=== PATIENT | male | born 1955 | race Caucasian/White ===

== ENCOUNTER → 2019-07-06 | Outpatient (CLI) | payer MEDICARE, BC ==
--- NOTE | 2019-07-06 17:59 | CONS ---
CONSULTATION DATE OF SERVICE: 07/06/2019 This is a 63-year-old gentleman who has been evaluated in Sleep Center for obstructive sleep apnea-hypopnea syndrome. HISTORY OF PRESENT ILLNESS/SLEEP-WAKE EVALUATION: Patient was diagnosed with obstructive sleep apnea about 15 years ago. Since that time, he has been on treatment with CPAP. For the last years his weight increased from around 280 pounds up to 380 pounds. He is using the machine but not very regularly and may have episodes of snoring and stopping breathing while using the machine. He wakes up from sleep up to 4 times with up to 3 episodes of nocturia. No history of hypnagogic hallucinations, sleep paralysis or cataplexy. During the day, the patient may take one nap. Cornelius Sleepiness Scale is 7. PAST MEDICAL HISTORY: 1. Hypertension. 2. Hyperlipidemia. 3. Knee problems. PAST SURGICAL HISTORY: 1. Bilateral total knee replacement. 2. Bilateral surgical treatment of rotator cuff problems. MEDICATIONS: 1. Lisinopril. 2. Simvastatin. 3. Mucinex. 4. Vitamin B12. 5. Vitamin C. 6. Multivitamins. 7. . SOCIAL HISTORY: Positive for smoking about 1 to 2 packs per week for about 20 years. Quit 8 years ago. Alcohol consumption occasional. FAMILY HISTORY: Hypertension, stroke, snoring. REVIEW OF SYSTEMS: Awakenings from sleep, sometimes tiredness and sleepiness during the day. PHYSICAL EXAMINATION: GENERAL: A pleasant gentleman without distress. VITAL SIGNS: BP 152/71, HR 78, RR 18, height 6 feet 0 inches, weight 380 pounds. Body mass index 51.5, temperature 98.0, oxygen saturation at room air 93%. HEENT: PERRLA, EOMI. Evaluation of oropharynx showed tongue protrudes midline. Extremely low position of soft palate. Mallampati IV. Slight restriction of nasal breathing. NECK: Supple. No JVD. Thyroid is not palpable. Wide neck; 23 inches in circumference. LUNGS: Clear to percussion and to auscultation. Good air exchange. No wheezing or rhonchi. HEART: S1, S2 regular. No murmurs, gallops or rubs. ABDOMEN: Obese. EXTREMITIES: Minimal up to 1+ ankle edema. DENTAL ASSISTING INSTRUCTOR: Awake, alert, and oriented X3. Cranial nerves 2 to 7 intact. There is no fasciculation or atrophy. noted. No focal deficits observed. IMPRESSION: 1. History of obstructive sleep apnea for 15 years. Last sleep study 15 years ago. Patient's weight increased by 100 pounds. Extremely low soft palate, awakenings from sleep, wide neck; obstructive sleep apnea-hypopnea syndrome. 2. Obesity; body mass index 51.5. 3. Hypertension. 4. Hyperlipidemia. 5. Status post bilateral total knee replacement. 6. Status post bilateral rotator cuff surgery. PLAN: 1. Polysomnography for evaluation of patient's breathing during sleep. 2. CPAP/BiPAP titration if sleep study confirms obstructive sleep apnea-hypopnea syndrome. 3. Preferable position during sleep on the side. 4. No driving if patient feels any sleepiness. 5. I will see patient for follow up visit to explain results of testing and following plan. Thank you very much for referring this patient for consultation. Sincerely, Yifan Lundberg MD, PhD, FAASM Diplomat of [place] [employer] [place] [employer] Recruiting Consultant of [facility] [employer] MMODL / IJN: [id number] /
== END | disposition home or self-care (01) ==
LOC: SLEEP 11:12
PROVIDERS: ATTEND Internal Medicine
DX: G47.33 Obstructive sleep apnea (adult) (pediatric) (principal); E66.9 Obesity, unspecified; I10 Essential (primary) hypertension; E78.5 Hyperlipidemia, unspecified; R35.1 Nocturia; Z96.653 Presence of artificial knee joint, bilateral; Z68.43 Body mass index [BMI] 50.0-59.9, adult; Z98.890 Other specified postprocedural states; Z99.89 Dependence on other enabling machines and devices; Z79.899 Other long term (current) drug therapy
CPT/HCPCS: 99211

== ENCOUNTER → 2021-01-08 | Outpatient (CLI) | payer MEDICARE ==
--- NOTE | 2021-01-08 12:36 | SFUN ---
SLEEP CENTER FOLLOW UP NOTE DATE OF SERVICE: 01/08/2021 A 65-year-old gentleman had been followed in Sleep Center for treatment of obstructive sleep apnea-hypopnea syndrome. The patient did not use his CPAP equipment for more than 6 months because CPAP unit does not work. The patient had polysomnogram in 07/25/2019, but he slept during the sleep study only for 1 hour and 27 minutes, which is not sufficient for confirmation of diagnosis, although during this time patient's respiration showed apnea-hypopnea index 85.7. I ordered to proceed with a home test at that time in 2019, but because of situation with COVID patient did not have any testing. He continued to have problems with sleep. He continued to snore and wake up from sleep. Kyle Sleepiness Scale today is 6. MEDICATIONS: Simvastatin 20 mg once a day, lisinopril hydrochlorothiazide 10-12.5 mg tab daily. PHYSICAL EXAMINATION: GENERAL: Patient in no distress. VITAL SIGNS: BP 137/77, HR 79, RR 15, height 6 feet 0 inches, weight 370.4, BMI 50.1, temperature 98.4, oxygen saturation at room air 97%. HEENT: PERRLA, EOMI. Oropharynx extremely low position of soft palate. Mallampati 4. NECK: Supple, no JVD. Thyroid is not palpable. LUNGS: Clear to percussion and to auscultation. Good air exchange. No wheezing or rhonchi. HEART: S1, S2 regular. No murmurs, gallops, or rubs. ABDOMEN: Obese. EXTREMITIES: No clubbing or cyanosis. OLIVING MACHINE OPERATOR: Awake, alert, and oriented X3. Cranial nerves 2 to 7 intact. There is no fasciculation or atrophy. noted. No focal deficits observed. IMPRESSION: 1. History of obstructive sleep apnea-hypopnea syndrome for about 16 years. Last sleep study 1-1/2 years ago. At that time, the patient slept only for 1 hour and 27 minutes. CPAP unit is not working, broken. Extremely low position of soft palate. Multiple awakenings from sleep. Wide neck 22-1/2 inches in circumference. Obstructive sleep apnea-hypopnea syndrome. 2. Morbid obesity, body mass index 50.1. 3. Hypertension. 4. Hyperlipidemia. 5. Status post bilateral knee replacement. 6. Status post bilateral rotator cuff treatment. PLAN: 1. Home sleep apnea test to confirm obstructive sleep apnea-hypopnea syndrome. 2. Preferably CPAP titration for correction of respiratory abnormalities because of morbid obesity with BMI 50.1. 3. Losing weight. 4. Sleep hygiene with time in bed for 7-1/2 to 8 hours. 5. No driving if feeling sleepiness. Thank you very much for allowing me to participate in management of your patient. Sincerely, Yifan Lundberg MD, PhD, FAASM Diplomat of [place] [employer] [place] [employer] Video Specialist of [facility] [place] MMODL / IJN: [id number] /

== ENCOUNTER → 2021-05-14 | Outpatient (CLI) | payer MEDICARE | END | disposition home or self-care (01) ==

== ENCOUNTER → 2022-05-13 | Outpatient (CLI) | payer MEDICARE ==
--- NOTE | 2022-05-13 13:40 | P.PN ---
Subjective DATE: 05/13/2022 FOLLOW UP VISIT. Patient with obstructive sleep apnea hypopnea syndrome return to sleep center for follow-up visit. Patient is using PAP equipment every night for the whole night, getting PAP supplies in time. The patient does not have significant problems with the mask, PAP unit and humidification. Basye sleepiness scale is 0. I checked BiPAP unit. PAP unit pressure maximal inspiratory pressure 24 minimal expiratory pressure 10, average pressure of 14.5 over 10.5 cm H2O. Usage is 100 % for more then 4 hours, average 8.2 hours per night. Leak is 94 l/m, which is in high range. Apnea Hypopnea Index is 2.2, which is normal. MEDICATIONS:1. Lisinopril 2. Simvastatin 20 mg once a day During physical exam: GENERAL: A pleasant patient without any distress. VITAL SIGNS: BP 131/69, HR 69, RR 20 , weight 349, height 6 foot, body mass index 47.3, temperature 97.1, oxygen saturation at room air 97% . HEENT: PERRLA, EOMI.low position of soft palate, Mallapati 34 . NECK: Supple. No JVD. LUNGS: Clear to percussion and to auscultation. Good air exchange. No wheezing or rhonchi. HEART: S1, S2 regular. ABDOMEN: Soft and nontender. Obese EXTREMITIES: No clubbing or cyanosis. AUTOMOTIVE PARTS MANAGER: Awake, alert, and oriented x3. No focal deficit. Impressions: 1. Extremely severe obstructive sleep apnea hypopnea syndrome, origeonal AHI 88.7. Patient demonstrated great compliance with treatment, benefiting from treatment, normal respiration on BiPAP. 2. With obesity. 3. Hypertension. 4. Hyperlipidemia. 5. Periodic limb movements during titration, no clinical symptoms at the present time. 6. That is post bilateral knee replacement. 7. Post bilateral rotator cuff surgery. Plan: 1. Continue using PAP equipment every night for the whole night. 2. To change air filter at least 1-2 times per month. 3. PAP unit should stay lower then position of the head. 4. Advised patient to remove all remaining water from humidifier canister daily and make it dry after each usage. Refill canister with fresh distilled water before each usage. 5. Sleep hygiene with regular time in bed for at least 8 hours. 6. Precautions related to driving. No driving if feel any sleepiness. 7. I will maintain prescription for PAP supplies including mask, tube, filters. 8. Follow up visit in 12 months or earlier if patient has any problems. 9. Watching and losing weight. Thank you very much for allowing me to participate in the management of your patient. Yifan Lundberg MD, PhD, FAASM. Diplomat of [place] [employer], Sleep Medicine Board by [place] [employer] Personnel Psychologist of [facility] [place]
== END | disposition home or self-care (01) ==
LOC: SLEEP 13:02
PROVIDERS: ATTEND Internal Medicine
DX: G47.33 Obstructive sleep apnea (adult) (pediatric) (principal); E66.9 Obesity, unspecified; I10 Essential (primary) hypertension; E78.5 Hyperlipidemia, unspecified; Z98.890 Other specified postprocedural states
CPT/HCPCS: 99212

== ENCOUNTER → 2022-12-10 | Outpatient (CLI) | payer MEDICARE ==
--- NOTE | 2022-12-10 10:21 | US ---
EXAMINATION TYPE: US duplex aorta DATE OF EXAM: 12/10/2022 COMPARISON: NONE CLINICAL HISTORY: F17.200 smoking. AAA screening TECHNIQUE: Multiple sonographic images of the abdominal aorta are obtained. FINDINGS: EXAM MEASUREMENTS: Abdominal Aorta: Proximal: Obscured by bowel gas Mid: 1.9 x 2.2 cm Distal: 1.5 x 1.1 cm Bifurcation: .7 x 1.0 cm .6 x 1.0 cm SENIOR PENSIONS ADMINISTRATOR NOTES: No significant atherosclerotic changes. IMPRESSION: No diagnostic evidence of the visualized abdominal aorta.
== END | disposition home or self-care (01) ==
LOC: RADUSWWP 09:23
PROVIDERS: ATTEND Family Medicine
DX: Z13.6 Encounter for screening for cardiovascular disorders (principal); F17.200 Nicotine dependence, unspecified, uncomplicated
CPT/HCPCS: 93979

== ENCOUNTER → 2024-08-24 | Outpatient (CLI) | payer MEDICARE ==
[2024-08-24 13:25] VITALS: BP 163/77; PULSE 77; RESP 16; TEMP 97.4
--- NOTE | 2024-08-24 13:57 | P.PROGSL ---
Subjective DATE: 08/24/2024 FOLLOW UP VISIT. Patient with obstructive sleep apnea hypopnea syndrome return to sleep center for follow-up visit. Information from previous visit have been reviewed. Patient is using PAP equipment every night for the whole night, getting PAP supplies in time. The patient does not have significant problems with the mask, PAP unit and humidification. [place] sleepiness scale is 2. I checked information from PAP unit. PAP unit pressure maximal inspiratory pressure 24, minimal expiratory pressure 10, average pressure 15.1/11.1 cm H2O. Usage is 100% for more then 4 hours, average 8.7 hours per night. Leak is extremely high at 91 l/m. Apnea Hypopnea Index is 1.9, which is normal. MEDICATIONS have been reviewed, please see below. During physical exam: GENERAL: A pleasant patient without any distress. VITAL SIGNS: Please see below, weight is 372.6 lbs. HEENT: PERRLA, EOMI.low position of soft palate, Mallapati 3-4 . NECK: Supple. No JVD. LUNGS: Clear to percussion and to auscultation. Good air exchange. No wheezing or rhonchi. HEART: S1, S2 regular. ABDOMEN: Soft and nontender. Obese EXTREMITIES: No clubbing or cyanosis. MASTERCAM PROGRAMMER: Awake, alert, and oriented x3. No focal deficit. Impressions: 1. Obstructive sleep apnea-hypopnea syndrome. Patient demonstrated great compliance with treatment, benefiting from treatment. 2. Obesity, BMI 53.2, patient increased his weight on 23 pounds comparing with previous visit. 3. Hypertension. 4. Hyperlipidemia. 5. History of periodic limb movements, no complaints at the present time. 6. Status post bilateral knee replacement. 7. Status post bilateral rotator cuff surgery. Plan: 1. Continue using PAP equipment every night for the whole night. 2. Sleep hygiene with regular time in bed for at least 7.5-8 hours 3. PAP unit should stay lower then position of the head. 4. Advised patient to remove all remaining water from humidifier canister daily and make it dry after each usage. Refill canister with fresh distilled water before each usage. 5. Watching weight. 6. Precautions related to driving. No driving if feel any sleepiness. 7. I will maintain prescription for PAP supplies including mask, tube, filters. 8. Follow up visit in 12 months or earlier if patient has any problems. Thank you very much for allowing me to participate in the management of your patient. Yifan Lundberg MD, PhD, FAASM. Diplomat of [place] [employer], Sleep Medicine Board by [place] [employer] Travel Money Advisor of [facility] [place] cc: Buddy Gaona MD Objective - Vital Signs Vital Signs: Vital Signs Temp 97.4 F L 08/24/24 13:25 Pulse 77 08/24/24 13:25 Resp 16 08/24/24 13:25 BP 163/77 08/24/24 13:25 Pulse Ox 98 08/24/24 13:25 FiO2 Intake & Output 08/23/24 08/24/24 08/24/24 18:59 06:59 18:59 Weight 168.906 kg
== END ==
LOC: 3 N SLEEP 13:08
PROVIDERS: ATTEND Internal Medicine
CPT/HCPCS: 99212